=== PATIENT | female | born 1965 | race Caucasian/White ===

== ENCOUNTER 2017-12-13 08:11 | Day surgery (SDC) | payer OTHER, SELFPAY ==
--- NOTE | 2017-12-06 14:32 | EKG12_ITS ---
Test Reason : PRE OP Blood Pressure : / mmHG Vent. Rate : 078 BPM Atrial Rate : 078 BPM P-R Int : 140 ms QRS Dur : 092 ms QT Int : 376 ms P-R-T Axes : 073 080 050 degrees QTc Int : 428 ms Normal sinus rhythm Minimal voltage criteria for LVH, may be normal variant ST abnormality, possible digitalis effect Abnormal ECG Confirmed by DAVID JEFF, CHANDRAKANT ([id number]), market editor JESUS HUNTER ([id number]) on 12/07/2017 11:53:48 AM Referred By: TAYLOR Confirmed By:CHANDRAKANT HERNANDEZ MD
[2017-12-06 16:06] LABS: Hematocrit 39.8 % (37-47); Hemoglobin 13.6 g/dl (12.0-15.0); Mean Corp Hgb Conc 34.2 g/gl (32-36); Mean Corpuscular Hgb 30.3 pg (27.0-32.0); Mean Corpuscular Volume 88.6 fL (81-99); Platelet Count 259 K/mm3 (150-450); RBC Distribution Width CV 12.3 % (11.6-14.6); RBC Distribution Width SD 39.3 fl (35.1-43.9); Red Blood Count 4.49 M/mm3 (4.2-5.4); White Blood Count 6.4 K/mm3 (4.4-11.0)
[2017-12-06 16:08] LABS: Scan Indicated on CBC? Y/N NO
[2017-12-06 16:26] LABS: Anion Gap 7 (5-15); BUN 11 mg/dL (7-18); Calcium,Total 8.7 mg/dL (8.5-10.1); Chloride 103 mmol/L (98-107); Creatinine, Serum 0.79 mg/dL (0.55-1.02); EST Glomerular Filtration Rate 81 mL/min (>60); Est Glom Filt Rate - Afr Amer 98 mL/min (>60); Glucose 93 mg/dL (70-110); Potassium 3.2 mmol/L (3.5-5.1); Sodium Level 138 mmol/L (136-145)
[2017-12-13] VITALS (12 sets, daily range): BP systolic 130–160; BP diastolic 64–89; PULSE 70–96; RESP 14–18; TEMP 36.1–37.2; O2SAT 93–99; BMI 23.6
--- NOTE | 2017-12-13 05:22 | PCM.HPOB.BLA ---
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 Is patient in pain?: No Allergies amoxicillin [From Augmentin] Allergy (Mild, Verified 12/06/17 13:40) Diarrhea clavulanic acid [From Augmentin] Allergy (Mild, Verified 12/06/17 13:40) Diarrhea Medications megestrol 40 mg tablet 40 mg PO BID #60 tab 10/30/17 [Rx Confirmed 12/06/17] Hydrochlorothiazide [Hctz] 12.5 mg PO DAILY 12/06/17 [History Confirmed 12/06/17] Lorazepam [Ativan] 0.5 mg PO DAILY 12/06/17 [History Confirmed 12/06/17] Losartan Potassium 100 mg PO DAILY 12/06/17 [History Confirmed 12/06/17] Is last menstrual period known: Yes Last Menstral Period: 11/30/17 Post menopausal: No Patient : No : No PFSH Medical History Abnormal Pap smear of cervix (Acute) Anxiety (Acute) Hypertension (Chronic) Surgical History H/O knee surgery (Acute) gallbladder surgery (Acute) Family History Mother Cancer Brain Father Pulmonary fibrosis Multiple myeloma Cancer skin Sister Lupus Social History Smoking Status: Never smoker alcohol intake: never substance use type: does not use caffeine: Yes what type of physical activity do you participate in: walking frequency: 3-4 times per week seatbelt use: always additional social history: Allen Drummond Pregancy History 3 Elective abortions Hx Para 3 Spontaneous abortions Hx # Term Pregnancies Ectopic pregnancies Hx # Pregnancies Multiple births # of living children Past Pregnancies Del. Date Name GA/Weeks Outcome Route Bth Weight Gen Labor Lgth Anesthesia Del Locatn Provider FOB Unknown 1986 Andrew Unknown 1991 Andres Unknown 1998 Mari [facility] Preoperative exam for gynecologic surgery: Details: PRESTON BANGURA is a 52 year old who presents for abnormal uterine bleeding. she has bleeding most days of the month and then heavy at times like a regular period. she also has some pain with bleeding. pelvic us shows multiple fibroids including a submucosal fibroid. she denies any loss of urine. Female Reproductive History Last Menstral Period: 11/30/17 Cycle Length: 21-35 Questions: Metorrhagia: Yes, Sexually active: Yes, Dyspareunia: Yes, PCB: No ROS Const Constitutional: Reports system reviewed and no additional complaints, except as docu Cardio Card: Denies chest pain Resp Resp: Denies dyspnea or cough GI GI: Denies abdominal pain, nausea, vomiting or cramping : Denies urinary frequency, vaginal dryness, vaginal discharge, urinary urgency, urinary incontinence, vaginal odor, pelvic pain or nipple discharge Skin Skin/Breast: Denies breast lump, breast pain, breast skin changes, nipple discharge or change in hair Exam Const General: cooperative, healthy appearing, comfortable, no acute distress HENMT Head: normal to inspection, normocephalic Neck Neck: normal visual inspection, trachea midline Thyroid: thyroid normal Resp Effort & Inspection: normal respiratory effort GI Inspection: normal to inspection Palpation: soft, nontender Skin General: no rashes or lesions noted Assessment & Plan Problems 1. Preoperative exam for gynecologic surgery Z01.818 2. Intramural and submucous leiomyoma of uterus D25.1 3. Menorrhagia with irregular cycle N92.1 Plan .discussed ablation verus hysterectomy and due to the multiple fibroids and persistent bleeding recommend TVH possible bilateral salpingectomy. Discussed with the patient risks of surgery including risks of anesthesia, bleeding, infection, damage to surrounding structures such as bowel, bladder, or vasculature that could lead to additional surgery to repair. I discussed the risk of needing to convert to open abdominal procedure if unable to perform the procedure. Coding Level of Care Code No Charge Diagnoses Preoperative exam for gynecologic surgery Z01.818 Intramural and submucous leiomyoma of uterus D25.1 ??Uterine leiomyoma location: intramural and submucous Menorrhagia with irregular cycle N92.1 ??Menorrahagia type: with irregular cycle
[2017-12-13 09:09] LABS: Potassium 3.8 mmol/L (3.5-5.1)
[2017-12-13 09:45] LABS: Internal QC Validated? YES +Cl - CLEAR BKGD; Pregnancy, Urine Negative Negative
[2017-12-13] MEDS: Vasopressin 20 UNITS/ML Vial (09:58)
--- NOTE | 2017-12-13 10:15 | UT_PTH ---
PATIENT: PRESTON BANGURA LOC: [facility] [place] U#:[id number] AGE/SX: 52/F ROOM: RE12/13/[address]: Dr. Kay Barclay MD : [id number] BED: DIS: 12/14/2017 SPEC #: [id number] RECD: 12/13/17 11:36 STATUS: DEAN JULIAN #: [id number] MAL: 12/13/17 10:[address]: Kay Barclay DEPT: SURGICAL PATHOLOGY RECD BY: Mannie Pollock ENTERED: 12/13/17 13:24 SP TYPE: UTERUS OTHR DR: Dr. Octavio Rogers MD Tissues: Uterus, NOS Procedures: Surgery Specimen Level V HEADER OPERATION: Hysterectomy, vaginal, bilateral salpingectomy PRE-OP DIAGNOSIS: Intramural and submucous leiomyoma of uterus, menorrhagia TISSUE SUBMITTED: Uterus and bilateral fallopian tubes MICROSCOPIC DIAGNOSIS Uterus and bilateral fallopian tubes, vaginal hysterectomy and bilateral salpingectomy: Cervix ? chronic cystic cervicitis with tunnel cluster formations. Endometrium ? predominant weakly proliferative endometrium with focal changes consistent with exogenous hormone effect. Myometrium ? submucosal and intramural leiomyomas (largest measuring 2.5 cm in greatest dimension). - Focal adenomyosis. Bilateral fallopian tubes - no pathologic diagnosis. SJ:mehreen 12/14/17 MICROSCOPIC DESCRIPTION Slides are reviewed. GROSS DESCRIPTION Received in fixative is one container labeled with the patient's name and designated uterus and bilateral fallopian tubes. The specimen consists of a hysterectomy specimen consisting of uterus with cervix and detached bilateral fallopian tubes. The uterus with cervix weighs 161 gm and measures 10 x 6 x 5.5 cm. The serosal surface is zurita, glistening. The ectocervical mucosa is congested. The external os is circular in contour. The endocervical canal measures 3 cm in length and the endocervical mucosa is congested. No mass lesion is identified. Sections of cervix reveal a few cysts filled with mucoid material. The triangular endometrial cavity measures 4.5 cm in length and 2 cm in width. The endometrium is zurita, glistening without any mass lesion and measures 0.1 cm in thickness. Sections of uterine wall reveal multiple intramural and submucosal nodular masses. The largest mass measures 2.5 cm in greatest dimension. Sections of these masses reveal zurita whorled cut surfaces without areas of hemorrhage, necrosis or cystic degeneration. The uninvolved uterine wall measures up to 3 cm in thickness. The fallopian tubes are not identified as right or left. One of the fallopian tube measures 3.5 cm in length and 0.5 cm in diameter. The fimbrial end is identified. Sections reveal unremarkable cut surfaces. The second fallopian tube only consists of predominantly fimbrial end and measures 2 x 0.5 x 0.5 cm. Sections reveal unremarkable cut surfaces. The second fallopian tube is inked black. Cement Mason Helper sections are submitted in ten cassettes as follows: 1 - anterior cervix, 2 - posterior cervix, 3 & 4 - anterior uterine wall, 5 & 6 - posterior uterine wall, 7 ? largest nodular mass, 8 ? intermediate size nodular mass (submucosal in location), 9 ? additional sections for smaller and intermediate size nodular masses, 10 ? bilateral fallopian tubes. One fallopian tube is inked black. / DEMARCO:mehreen 12/13/17 TC:1 CPT: 40049
[2017-12-13] MEDS: Lactated Ringers 1,000 ML 125 ML IV ×2 (11:44→17:45)
[2017-12-13] MEDS: Ketorolac 30 MG/ML Syringe IV ×3 (11:45→23:29)
[2017-12-13] MEDS: Acetaminophen 500 MG Tablet 1000 MG PO ×2 (14:32→21:06)
[2017-12-13] MEDS: oxyCODONE 5 MG Tablet PO ×2 (17:42→21:56)
[2017-12-13] MEDS: Ondansetron 4 MG/2 ML Vial IV (19:12)
[2017-12-13] MEDS: 0.9% NaCl Peripheral Flush Adult/Peds IV (22:00)
--- NOTE | 2017-12-14 00:34 | OP.PCM_ITS ---
Problem List (1) Menorrhagia Status: Chronic Qualifiers: (2) Uterine fibroid Status: Chronic Qualifiers: Report of Operation Date of Procedure: 12/13/17 Pre-Operative Diagnosis: uterine fibroids abnormal uterine bleeding Post-Operative Diagnosis: same Surgery/Procedure Performed:: tvhbs Description of Surgical Findings:: uterine fibroids normal tubes and ovaries Type of Anesthesia:: General Specimen's removed: uterus tubes Estimated Blood Loss (mL): 100 Fluids Replaced: crystalloid Description of Procedure: Patient was taken to the operating room and was placed under general anesthesia was prepped and draped in normal sterile fashion in the dorsal lithotomy position. Preoperative antibiotics and SCDs and Arauz catheter was placed inside the bladder. Weighted speculum was placed in the vagina and the anterior and posterior lip of the cervix was grasped with 2 Jose clamps and circumferentially injected with dilute vasopressin. A circumferential incision was made with a scalpel and the posterior cul-de-sac was entered into sharply and a longneck speculum was placed. The anterior cul-de-sac was also dissected down and entered into sharply and the uterosacral ligaments were clamped cut and suture ligated bilaterally followed by the cardinal ligaments which were Clamped cut and suture ligated bilaterally with 0 Monocryl. The uterus serially descended and progressive bites were taken bilaterally up to the level of the utero-ovarian ligament bilaterally which was clamped transected and double ligated with 0 Monocryl suture and 0 Vicryl free tie. Bilateral fallopian tubes and ovaries were well visualized and noted be within normal limits and the bilateral fallopian tubes were transected across the base with a Radha clamp and removed and sutured with 0 Vicryl suture. Excellent hemostasis was noted. Posterior peritoneum was reapproximated with 2-0 Vicryl and a modified Blount stitch was placed through the posterior vaginal cuff and bilateral uterosacral ligaments across the posterior cul-de-sac skimming along to provide apical support to the vagina. The vagina was closed with figure-of- eight 0 Vicryl pop offs including the posterior and anterior peritoneum in the reapproximation. Excellent hemostasis was noted. All instruments removed from the vagina clear urine was noted at the end of the procedure and patient was awoken and taken recovery in stable condition. - Complications none - Admit VTE Documentation VTE Present on Admission: No VTE Mechan Device Prophylaxis: SCD's
[2017-12-14] MEDS: oxyCODONE 5 MG Tablet PO ×2 (01:57→10:26)
[2017-12-14 03:50] VITALS: BP 135/76; PULSE 96; RESP 18; TEMP 36.9; O2SAT 99
[2017-12-14] MEDS: 0.9% NaCl Peripheral Flush Adult/Peds IV (05:40)
[2017-12-14] MEDS: Acetaminophen 500 MG Tablet 1000 MG PO (05:40)
[2017-12-14] MEDS: Ketorolac 30 MG/ML Syringe IV (05:40)
[2017-12-14 06:33] LABS: Hematocrit 35.7 % (37-47); Hemoglobin 12.2 g/dl (12.0-15.0); Mean Corp Hgb Conc 34.2 g/gl (32-36); Mean Corpuscular Hgb 30.4 pg (27.0-32.0); Mean Platelet Vol. 9.6 fl (6.2-12.0); Platelet Count 244 K/mm3 (150-450); RBC Distribution Width CV 12.5 % (11.6-14.6); RBC Distribution Width SD 39.8 fl (35.1-43.9); Red Blood Count 4.01 M/mm3 (4.2-5.4); White Blood Count 9.2 K/mm3 (4.4-11.0)
[2017-12-14 06:38] LABS: Scan Indicated on CBC? Y/N NO
[2017-12-14 07:26] VITALS: O2SAT 96
--- NOTE | 2017-12-14 07:47 | PCM.PN.OB ---
Subjective: doing well pain fairly controlled ambulating tolerating po - Physical Exam General: Alert, Oriented x3 Vital Signs Temp Pulse Resp BP Pulse Ox 98.4 F 96 18 135/76 H 96 12/14/17 03:50 12/14/17 03:50 12/14/17 03:50 12/14/17 03:50 12/14/17 07:26 Oxygen Flow Rate 2 Oxygen Delivery Method Room Air Weight: 150 lb 9.211 oz Body Mass Index (BMI) 23.6 Intake and Output for Last 24 Hours 12/12/17 12/13/17 12/14/17 23:59 23:59 23:59 Intake Total 2321 / 2321 1608 / 1608 Output Total 200 / 200 1600 / 1600 Balance 2121 / 2121 Laboratory Tests Past 24 Hrs 12/13/17 12/13/17 12/14/17 08:54 09:10 06:10 WBC 9.2 RBC 4.01 L Hgb 12.2 Hct 35.7 L MCV 89.0 MCH 30.4 MCHC 34.2 RDW 12.5 RDW Differential 39.8 Plt Count 244 MPV 9.6 Potassium 3.8 Urine Test Negative Assessment/Plan s/p tvh routine care doing well dc home
--- NOTE | 2017-12-14 07:54 | PCM.DC.VHY ---
Allergies/Adverse Reactions: Allergies amoxicillin [From Augmentin] Allergy (Mild, Verified 12/06/17 13:40) Diarrhea clavulanic acid [From Augmentin] Allergy (Mild, Verified 12/06/17 13:40) Diarrhea Medications to take at Discharge Hydrochlorothiazide [Hctz] 12.5 mg PO DAILY 12/06/17 Lorazepam [Ativan] 0.5 mg PO DAILY 12/06/17 Losartan Potassium 100 mg PO DAILY 12/06/17 Potassium 99 mg PO DAILY 12/13/17 Naproxen [Naprosyn] 250 - 500 mg PO Q8H PRN PRN #30 tab 12/14/17 Oxycodone HCl/Acetaminophen [Percocet 5-325] 2 tablet PO Q4H PRN PRN 7 Days #28 tablet 12/14/17 The following prescriptions were given: Oxycodone HCl/Acetaminophen [Percocet 5-325] 2 tablet PO Q4H PRN PRN 7 Days #28 tablet PRN Reason: Moderate-Severe pain Naproxen [Naprosyn] 250 - 500 mg PO Q8H PRN PRN #30 tab PRN Reason: MILD PAIN Primary Care Physician: Troy Rogers MD [Primary Care Provider] - Please Follow Up With: Kay Barclay MD - [phone]
[2017-12-14 07:55] VITALS: BP 124/77; PULSE 81; RESP 16; TEMP 36.8; O2SAT 99
[2017-12-14] MEDS: LORazepam 0.5 MG Tablet PO (10:26)
[2017-12-14 11:13] VITALS: BP 127/79; PULSE 83; RESP 16; TEMP 36.8; O2SAT 99
== END 2017-12-14 07:55 | disposition home or self-care (01) ==
LOC: SDC 08:12 → AC 08:15 → MS3 11:19
PROVIDERS: Anesthesiology; Family Provider Family Medicine; PCP Family Medicine; Visit Provider Obstetrics & Gynecology
PROC: (CPT 58260; principal; 2017-12-13 09:55)
DX: D25.0 Submucous leiomyoma of uterus (principal); D25.1 Intramural leiomyoma of uterus; N92.1 Excessive and frequent menstruation with irregular cycle; N72 Inflammatory disease of cervix uteri; N85.8 Other specified noninflammatory disorders of uterus; N80.0 Endometriosis of uterus; I10 Essential (primary) hypertension; F41.9 Anxiety disorder, unspecified; Z79.899 Other long term (current) drug therapy
CPT/HCPCS: 00944; 58262; 36415; 80048; 81025; 84132; 85027; 86850; 86900; 88307; J7120; A4216; J2405

== ENCOUNTER → 2017-12-20 09:49 | Outpatient (CLI) | payer OTHER, SELFPAY ==
[2017-12-13 12:42] VITALS: BMI 23.6
[2017-12-14 11:13] VITALS: BP 127/79
--- NOTE | 2017-12-20 09:54 | ECHOD_ITS ---
Reason For Study: Syncope Procedure This was a 2D Doppler, Color Flow transthoracic echocardiogram. Exam performed in department. Left Ventricle Mild concentric left ventricular hypertrophy. The estimated ejection fraction is 65 %. Stage 1 diastolic dysfunction. No regional wall motion abnormalities noted. Right Ventricle Normal size and thickness. Normal systolic function. Atria Normal left atrium. Normal right atrium. Normal atrial septum. Mitral Valve The mitral valve is structurally normal. No prolapse or stenosis seen. Tricuspid Valve Normal tricuspid valve. Unable to estimate RV systolic pressure/pulmonary artery pressure due to technically difficult study. Aortic Valve Normal aortic valve. Trisinus/trileaflet aortic valve. Pulmonic Valve Normal pulmonic valve. Great Vessels Normal aortic root. Normal arch. Normal inferior vena cava. Inferior vena cava collapse with sniff. Pericardium/Pleural No pericardial effusion. MMode/2D Measurements & Calculations LVIDd: 3.8 cm IVSd: 1.4 cm Ao root diam: 2.5 cm LVIDs: 3.2 cm LVPWd: 1.3 cm LA dimension: 2.6 cm RVDd: 2.4 cm FS: 16.6 % LAV(MOD-bp): 25.5 ml LA A4 area: 9.3 cm2 RA A4 area: 8.7 cm2 LAV(MOD-bp) Indexed: 14.2 ml/m2 LAV(MOD-sp2): 28.4 ml LAV(MOD-sp4): 18.4 ml Doppler Measurements & Calculations MV E max naif: 49.1 cm/sec Lat Peak E' Naif: 5.9 cm/sec Med Peak E' Naif: 5.4 cm/sec MV A max naif: 72.5 cm/sec E/E' lat: 8.4 E/E' med: 9.2 MV E/A: 0.68 Ao V2 max: 110.5 cm/sec LV V1 max: 83.4 cm/sec PA V2 max: 74.0 cm/sec Ao max P.9 mmHg LV V1 max P.8 mmHg Interpretation Summary Mild concentric left ventricular hypertrophy. The estimated ejection fraction is 65 %. Stage 1 diastolic dysfunction. Unable to estimate RV systolic pressure/pulmonary artery pressure due to technically difficult study. There is no comparison study available. Ordering Physician: Pascual Smith Referring Physician: DOCTOR, OUT OF TOWN Performed By: Andree Lucio RDCS
== END ==
PROVIDERS: Family Provider Family Medicine; PCP Family Medicine
DX: R55 Syncope and collapse (principal)
CPT/HCPCS: 93225; 93226; 93306

== ENCOUNTER → 2017-12-28 17:17 | Outpatient (CLI) | payer OTHER, SELFPAY | PROVIDERS: Family Provider Family Medicine; Visit Provider Obstetrics & Gynecology | DX: R30.0 Dysuria (principal) | CPT/HCPCS: 87077; 87086; 87088; 87186 ==

== ENCOUNTER → 2018-02-04 12:26 | Outpatient (CLI) | payer OTHER, SELFPAY ==
[2018-01-25 12:22] LABS: BUN 11 mg/dL (7-18); Creatinine, Serum 0.84 mg/dL (0.55-1.02); EST Glomerular Filtration Rate 76 mL/min (>60); Est Glom Filt Rate - Afr Amer 91 mL/min (>60)
--- NOTE | 2018-02-04 12:42 | MRI_ITS ---
STUDY: MRI BRAIN WITH AND WITHOUT CONTRAST REASON FOR EXAM: Female, 52 years old. Fainting TECHNIQUE: Standardized multiplanar fat and water weighted pulse sequences were obtained. 7 ml of Gadavist contrast material was administered intravenously for the contrast portion of the examination. COMPARISON: October 30, 2017 FINDINGS: Normal size of the ventricles and extra-axial spaces for the patient's age. Periventricular white matter hyperintensity is seen most pronounced in the parieto-occipital regions with involvement of the corpus callosum. No mass effect or restricted diffusion.. Normal bilateral basal ganglia. Normal thalami. There is no extra-axial fluid accumulation. Normal flow voids within the major intracranial circulation suggesting patency by spin echo criteria. Normal venous enhancement. There is no enhancing intra-axial or extra-axial abnormality. Normal sella turcica, pituitary gland, infundibular stalk, optic chiasm and hypothalamus. Normal tectal plate and pineal gland. Normal midbrain, yoko and medulla. Normal cerebellum. Normal basal cisterns. Normal bilateral temporal bones. Normal bilateral internal auditory canals. Increased signal intensity in the right mastoid air cells which may be consistent with inflammatory disease No demonstrated orbital abnormality, within the constraints of a routine brain study. Minor mucosal thickening of the ethmoid air cells. Normal calvarium and skull base. Normal visualized soft tissue structures. Normal visualized upper cervical spine. Findings are unchanged when compared with prior study MRI/Brain W/WO Contrast IMPRESSION: Findings which may be consistent with PRES in patient of this age although multiple sclerosis may have similar appearance. Clinical correlation recommended Electronically Signed: Timi Alexander MD at 22:06 EDT , Service support ,
== END ==
PROVIDERS: Psychiatry & Neurology Neurology; Family Provider Family Medicine; PCP Family Medicine
DX: R93.0 Abnormal findings on diagnostic imaging of skull and head, not elsewhere classified (principal); R55 Syncope and collapse; R94.01 Abnormal electroencephalogram [EEG]; I10 Essential (primary) hypertension
CPT/HCPCS: 36415; 70553; 82565; 84520; A9585

== ENCOUNTER → 2018-03-12 18:06 | Outpatient (CLI) | payer OTHER, SELFPAY | PROVIDERS: Visit Provider Nurse Practitioner Women's Health | DX: N94.9 Unspecified condition associated with female genital organs and menstrual cycle (principal) | CPT/HCPCS: 87070; 87077; 87186; 87205 ==

== ENCOUNTER → 2018-10-07 09:14 | Outpatient (CLI) | payer OTHER, SELFPAY ==
[2018-09-26 17:13] VITALS: BMI 23.6
--- NOTE | 2018-10-10 14:20 | EEG ---
- Electroencephalogram Service 10/07/18 This is a 18 channel electroencephalogram performed utilizing the International 10-20 electrode placement protocol as well as hyperventilation, photic stimulation and EKG reference leads on this 53-year-old female with a history of seizures. Activity is 10 Hz symmetrically in the posterior leads which attenuates with eye opening. Hyper ventilation is performed for 3 minutes with good effort with no lateralizing or epileptiform changes. Photic stimulation generates a normal symmetric driving response in the posterior leads and EKG is normal sinus rhythm throughout the recording. The patient remained awake throughout the recording without lateralizing or epileptiform changes. Impression: Normal awake electroencephalogram
== END ==
PROVIDERS: Family Provider Family Medicine; PCP Family Medicine; Referring Provider Psychiatry & Neurology Neurology; Visit Provider Psychiatry & Neurology Neurology
DX: R56.9 Unspecified convulsions (principal)

== ENCOUNTER → 2018-12-11 17:48 | Outpatient (CLI) | payer OTHER, SELFPAY ==
[2018-09-26 17:13] VITALS: BMI 23.6
--- NOTE | 2018-12-11 18:03 | MRI_ITS ---
STUDY: MRI BRAIN WITHOUT CONTRAST REASON FOR EXAM: Female, 53 years old. Seizure, history of prior abnormal MRI TECHNIQUE: Standardized multiplanar fat and water weighted pulse sequences were obtained. COMPARISON: February 04, 2018 FINDINGS: Normal size of the ventricles and extra-axial spaces for the patient's age. Periventricular white matter disease most pronounced the parieto-occipital regions with involvement of the corpus callosum and focal lesions within the frontal parietal regions bilaterally. No mass or restricted diffusion.. Normal bilateral basal ganglia. Normal thalami. There is no extra-axial fluid accumulation. Normal flow voids within the major intracranial circulation suggesting patency by spin echo criteria. Normal sella turcica, pituitary gland, infundibular stalk, optic chiasm and hypothalamus. Normal tectal plate and pineal gland. Normal midbrain, yoko and medulla. Normal cerebellum. Normal basal cisterns. Normal bilateral temporal bones. Normal bilateral internal auditory canals. Increased signal within the right mastoid air cells which may be due to inflammatory changes No demonstrated orbital abnormality, within the constraints of a routine brain study. Minor mucosal thickening in the right ethmoid air cells.. Normal calvarium and skull base. Normal visualized soft tissue structures. Normal visualized upper cervical spine. Findings are stable since previous study MRI/Brain without Contrast IMPRESSION: Stable appearance to periventricular white matter disease likely chronic ischemic changes due to small vessel disease. No evidence for acute infarct . Electronically Signed: Timi Alexander MD at 21:17 EST , Service support ,
== END ==
PROVIDERS: Family Provider Family Medicine; PCP Family Medicine; Referring Provider Psychiatry & Neurology Neurology; Visit Provider Psychiatry & Neurology Neurology
DX: R56.9 Unspecified convulsions (principal)
CPT/HCPCS: 70551

== ENCOUNTER → 2018-12-25 07:15 | Outpatient (CLI) | payer OTHER, SELFPAY ==
[2018-09-26 17:13] VITALS: BMI 23.6
--- NOTE | 2018-12-25 07:19 | BI_ITS ---
MAMMOGRAPHY - BILATERAL SCREENING REASON FOR EXAM: Female, 53 years old. Routine annual screening examination. PERTINENT HISTORY: Non-contributory. TECHNIQUE: Digital bilateral breast karen (3D mammographic acquisition) in the CC and MLO projections. 2-D mediolateral oblique (MLO) and craniocaudad (CC) views of both breasts were obtained. CAD: Full Field Digital Mammography with Computer Added Detection was performed. COMPARISON: Comparison is made with prior study dated October 22, 2017. FINDINGS: Breast Composition: There are scattered areas of fibroglandular density. There are no dominant masses or suspicious calcifications. No other significant abnormalities are identified. There has been no significant change since the prior study. BI/SCREENING MAMM (CAD), BILAT IMPRESSION: Stable bilateral screening mammogram. Yearly follow-up mammogram recommended. (A) ASSESSMENT CATEGORY: BIRADS Category 1: Negative. A letter regarding these results will be sent to the patient by the facility within 30 days. Approximately 10% of breast cancers are not detected by mammography. A normal mammogram should not delay biopsy of a clinically suspicious abnormality. [id number] Electronically Signed: Keaton Wagner MD at 9:43 EST , Service support ,
== END ==
PROVIDERS: Family Provider Family Medicine; PCP Family Medicine; Referring Provider Family Medicine; Visit Provider Family Medicine
DX: Z12.31 Encounter for screening mammogram for malignant neoplasm of breast (principal)
CPT/HCPCS: 77063; 77067

== ENCOUNTER 2019-02-21 17:50 | Emergency (ER) | payer OTHER, SELFPAY ==
[2018-09-26 17:13] VITALS: BMI 23.6
[2019-02-21 17:51] VITALS: BP 163/91; PULSE 91; RESP 16; TEMP 36.7; O2SAT 98; BMI 23.8
[2019-02-21] MEDS: Lidocaine/Epi/Tetracaine 50 ML 1 APPLIC TOPICAL (18:34)
--- NOTE | 2019-02-21 19:42 | ED.VISSUMM ---
- ER Visit Summary Date of Service: 02/21/19 Chief Complaint: Laceration History of Present Illness: The patient is a 53 F presenting with right hand laceration. This occurred just prior to arrival. She cut her right index finger on the sharp edge of a can. She is left-handed. Her tetanus is up-to-date. Physical Examination: Vitals are stable. Patient is afebrile. Alert no acute distress. HEENT exam is unremarkable. Neck is supple. Lungs are clear and equal bilaterally. Heart is regular rate and rhythm. Extremities 2 cm proximal palmar right index finger laceration. Normal cap refill. Tendon function is intact. Skin is warm and dry. No focal neurologic deficit. Remainder of exam is unremarkable. Emergency Department Course and Treatment: LET was applied. Irrigated with saline. Anesthetized with lidocaine. 5, 5-0 simple sutures were placed. Patient tolerated well. Advised wound care instructions. Advised follow-up with primary care physician. Disposition: Discharge home Impression: Right index finger laceration, laceration repair This note was generated with [employer] dictation software. It may contain incorrect words, spelling, and punctuation that were not noted in review of the chart prior to signing ED Disposition - Plan for ED Patient: Instructions: ED Laceration Hand Referrals: Troy Rogers MD [Primary Care Provider] -
[2019-02-21 19:58] VITALS: BP 156/94; PULSE 85; RESP 17; TEMP -7.2; TEMP 19; O2SAT 99
== END 2019-02-21 20:01 | disposition home or self-care (01) ==
PROVIDERS: Emergency Provider Emergency Medicine; Family Provider Family Medicine; PCP Family Medicine
DX: S61.210A Laceration without foreign body of right index finger without damage to nail, initial encounter (principal); W26.8XXA Contact with other sharp object(s), not elsewhere classified, initial encounter; Y93.9 Activity, unspecified; Y92.9 Unspecified place or not applicable
CPT/HCPCS: 12001; 99285

== ENCOUNTER → 2019-09-09 08:34 | Outpatient (CLI) | payer OTHER, SELFPAY ==
[2019-09-09 09:25] LABS: Estradiol 100.1 pg/mL; Follicle Stimulating Hormone 39.2 mIU/mL; Luteinizing Hormone 42.7 mIU/mL
[2019-09-09 09:28] LABS: Progesterone Level 0.13 ng/mL (See Comment)
[2019-09-09 14:03] LABS: Free T3 2.6 pg/mL (2.18-3.98); T4 Free Direct 1.03 ng/dL (0.76-1.46); Thyroid Stim Hormone (TSH) 2.35 uIU/mL (0.358-3.74)
[2019-09-10 19:29] LABS: DHEA Sulfate 175.9 ug/dL (29.4-220.5)
== END ==
LOC: LAB 09-08 09:22 → LAB.FUTURE 08:35 → LAB 09-10 07:07
PROVIDERS: Family Provider Family Medicine; PCP Family Medicine; Referring Provider Specialist; Visit Provider Specialist
DX: N95.1 Menopausal and female climacteric states (principal); E03.8 Other specified hypothyroidism; R53.81 Other malaise
CPT/HCPCS: 36415; 82627; 82670; 83001; 83002; 84144; 84403; 84439; 84443; 84481; 82626

== ENCOUNTER → 2019-11-01 10:54 | Outpatient (CLI) | payer OTHER, SELFPAY ==
[2019-11-03 09:33] LABS: Vitamin D,25 Hydroxy 32.4 ng/mL (29.95-100.01)
== END ==
PROVIDERS: Family Provider Family Medicine; PCP Family Medicine; Referring Provider Specialist; Visit Provider Specialist
DX: E55.9 Vitamin D deficiency, unspecified (principal)
CPT/HCPCS: 36415; 82306

== ENCOUNTER → 2020-04-08 08:49 | Outpatient (CLI) | payer OTHER, SELFPAY ==
[2020-04-08 10:19] LABS: Progesterone Level 14.56 ng/mL (See Comment)
[2020-04-08 10:26] LABS: Estradiol 19.4 pg/mL; Free T3 2.8 pg/mL (2.18-3.98)
== END ==
PROVIDERS: PCP Family Medicine; Referring Provider Specialist; Visit Provider Specialist
DX: E03.9 Hypothyroidism, unspecified (principal); N95.1 Menopausal and female climacteric states
CPT/HCPCS: 36415; 82670; 84144; 84403; 84481

== ENCOUNTER → 2020-04-15 10:08 | Outpatient (CLI) | payer OTHER, SELFPAY ==
[2020-04-15 12:31] LABS: Absolute Lymphocyte Count 1.75 X10^3/uL (0.83-4.51); Absolute Neutrophil Count 2.9 X10^3/uL (2.0-7.7); Basophil# 0.02 X10^3/uL; Basophil% 0.4 % (0-1); Eosinophil# 0.08 X10^3/uL; Eosinophils% 1.5 % (0-5); Hematocrit 42.7 % (37-47); Hemoglobin 14.2 g/dL (12.0-15.0); Lymphocyte # 1.75 X10^3/ul (4.0); Lymphocyte % 33.6 % (19-41); Mean Corp Hgb Conc 33.3 g/dL (32-36); Mean Corpuscular Hgb 30.6 pg (27.0-32.0); Mean Platelet Vol. 10.1 fl (6.2-12.0); Monocyte# 0.41 X10^3/uL; Monocyte% 7.9 % (0-10); NRBC Flagged by Analyzer 0 % (0-5); Neutrophil # 2.93 X10^3/uL (2.7-7.7); Neutrophil % 56.2 % (47-70); Platelet Count 234 K/mm3 (150-450); RBC Distribution Width CV 12.5 % (11.6-14.6); RBC Distribution Width SD 41.3 fl (35.1-43.9); Red Blood Count 4.64 M/mm3 (4.2-5.4); White Blood Count 5.2 K/mm3 (4.4-11.0)
[2020-04-15 12:44] LABS: Erythrocyte Sedimentation Rate 9 mm/hr (0-30)
[2020-04-15 13:02] LABS: Vitamin D,25 Hydroxy 37.4 ng/mL
[2020-04-15 13:10] LABS: ALB/GLOB Ratio 0.9 RATIO (0.9-2.4); AST(SGOT) 16 U/L (15-37); Alanine Aminotransfer ALT/SGPT 25 U/L (13-56); Albumin, Serum 3.6 g/dL (3.2-5.0); Alkaline Phosphatase 66 U/L (45-117); Anion Gap 4 (5-15); BUN 10 mg/dL (7-18); BUN/Creat Ratio 10.4 RATIO (10-20); CRP < 2.90 mg/L (0.0-3.0); Calcium,Total 9.1 mg/dL (8.5-10.1); Chloride 103 mmol/L (98-107); Creatinine, Serum 0.96 mg/dL (0.55-1.02); EST Glomerular Filtration Rate 64 mL/min (>60); Est Glom Filt Rate - Afr Amer 77 mL/min (>60); Globulin 3.8 g/dL (2.2-4.2); Glucose 84 mg/dL (74-106); Potassium 3.8 mmol/L (3.5-5.1); Protein, Total 7.4 g/dL (6.4-8.2); Rheumatoid Factor < 10.0 IU/mL (<15); Sodium Level 138 mmol/L (136-145)
[2020-04-17 15:52] LABS: ANTINUCLEAR ANTIBODIES DIRECT Positive (Negative)
[2020-04-28 05:11] LABS: HLA B27 Negative (.)
== END ==
PROVIDERS: PCP Family Medicine; Visit Provider Family Medicine
DX: M25.50 Pain in unspecified joint (principal)
CPT/HCPCS: 36415; 80053; 81291; 81374; 82306; 85025; 85652; 86038; 86140; 86225; 86235; 86431

== ENCOUNTER → 2020-06-18 10:32 | Outpatient (CLI) | payer OTHER, SELFPAY ==
[2020-06-18 13:06] LABS: Estradiol 32.9 pg/mL
[2020-06-18 13:11] LABS: Progesterone Level 18.35 ng/mL (See Comment)
== END ==
PROVIDERS: PCP Family Medicine; Referring Provider Specialist; Visit Provider Specialist
DX: N95.1 Menopausal and female climacteric states (principal); E03.9 Hypothyroidism, unspecified
CPT/HCPCS: 36415; 82670; 84144; 84403; 84481

== ENCOUNTER → 2020-09-23 12:50 | Outpatient (CLI) | payer OTHER, SELFPAY ==
[2020-09-23 16:00] LABS: Progesterone Level 9.46 ng/mL (See Comment)
[2020-09-23 18:24] LABS: Estradiol 12.7 pg/mL; Free T3 2.4 pg/mL (2.18-3.98)
== END ==
PROVIDERS: PCP Family Medicine; Referring Provider Specialist; Visit Provider Specialist
DX: E03.9 Hypothyroidism, unspecified (principal); E27.9 Disorder of adrenal gland, unspecified; N95.1 Menopausal and female climacteric states
CPT/HCPCS: 36415; 82627; 82670; 84144; 84403; 84481; 82626

== ENCOUNTER → 2020-12-06 12:21 | Outpatient (CLI) | payer OTHER, SELFPAY | PROVIDERS: PCP Family Medicine | DX: Z20.822 Contact with and (suspected) exposure to COVID-19 (principal) | CPT/HCPCS: 87635; U0003 ==

== ENCOUNTER → 2020-12-24 13:14 | Outpatient (CLI) | payer OTHER, SELFPAY ==
[2020-12-24 15:41] LABS: Progesterone Level 7.64 ng/mL (See Comment)
[2020-12-24 17:21] LABS: Anion Gap 4 (5-15); BUN 12 mg/dL (7-18); BUN/Creat Ratio 12.7 RATIO (10-20); Calcium,Total 8.7 mg/dL (8.5-10.1); Chloride 102 mmol/L (98-107); Cholesterol 118 mg/dL (200); Creatinine, Serum 0.95 mg/dL (0.55-1.02); EST Glomerular Filtration Rate 65 mL/min (>60); Est Glom Filt Rate - Afr Amer 78 mL/min (>60); Estradiol 15.1 pg/mL; Glucose 87 mg/dL (74-106); High Density Lipoprotein 47 mg/dL; Potassium 3.7 mmol/L (3.5-5.1); Sodium Level 138 mmol/L (136-145); Triglycerides 98 mg/dL; Very Low Density Lipoprotein 20 mg/dL (5-40)
== END ==
PROVIDERS: PCP Family Medicine; Referring Provider Family Medicine; Visit Provider Family Medicine
DX: E03.8 Other specified hypothyroidism (principal); N95.1 Menopausal and female climacteric states; I10 Essential (primary) hypertension
CPT/HCPCS: 36415; 80048; 80061; 82670; 84144; 84403; 84481

== ENCOUNTER → 2021-03-23 13:43 | Outpatient (CLI) | payer OTHER, SELFPAY ==
[2021-03-23 15:41] LABS: Progesterone Level 8.36 ng/mL (See Comment)
[2021-03-23 15:49] LABS: Estradiol 26.9 pg/mL; Free T3 4.8 pg/mL (2.18-3.98)
== END ==
PROVIDERS: PCP Family Medicine; Referring Provider Specialist; Visit Provider Specialist
DX: N95.1 Menopausal and female climacteric states (principal); E03.9 Hypothyroidism, unspecified
CPT/HCPCS: 36415; 82670; 84144; 84403; 84481

== ENCOUNTER → 2021-04-21 13:45 | Outpatient (CLI) | payer OTHER, SELFPAY ==
--- NOTE | 2021-04-21 13:48 | BI_ITS ---
MAMMOGRAPHY - BILATERAL SCREENING REASON FOR EXAM: Female, 55 years old. Routine annual screening examination. PERTINENT HISTORY: Non-contributory. TECHNIQUE: Digital bilateral breast karen (3D mammographic acquisition) in the CC and MLO projections. 2-D mediolateral oblique (MLO) and craniocaudad (CC) views of both breasts were obtained. CAD: Full Field Digital Mammography with Computer Added Detection was performed. COMPARISON: Comparison is made with prior study dated 12/25/2018 and 10/22/2017. FINDINGS: Breast Composition: There are scattered areas of fibroglandular density. There are no dominant masses or suspicious calcifications. Benign appearing left axillary nodes. No other significant abnormalities are identified. There has been no significant change since the prior study. BI/SCREENING MAMM (CAD), BILAT IMPRESSION: Stable bilateral screening mammogram. Yearly follow-up mammogram recommended. (A) ASSESSMENT CATEGORY: BIRADS Category 2: Benign. A letter regarding these results will be sent to the patient by the facility within 30 days. Approximately 10% of breast cancers are not detected by mammography. A normal mammogram should not delay biopsy of a clinically suspicious abnormality. [id number] Electronically Signed: Keaton Wagner MD at 14:57 EDT , Service support ,
== END ==
PROVIDERS: PCP Family Medicine; Referring Provider Family Medicine; Visit Provider Family Medicine
DX: Z12.31 Encounter for screening mammogram for malignant neoplasm of breast (principal)
CPT/HCPCS: 77067

== ENCOUNTER → 2021-06-22 13:53 | Outpatient (CLI) | payer OTHER, SELFPAY ==
[2021-06-22 15:43] LABS: Progesterone Level 9.24 ng/mL (See Comment)
[2021-06-22 19:38] LABS: Estradiol 47.7 pg/mL; Free T3 2.1 pg/mL (2.18-3.98); T4 Free Direct 0.84 ng/dL (0.76-1.46)
== END ==
PROVIDERS: PCP Family Medicine; Visit Provider Specialist
DX: E03.8 Other specified hypothyroidism (principal); N95.1 Menopausal and female climacteric states
CPT/HCPCS: 36415; 82670; 84144; 84403; 84439; 84443; 84481

== ENCOUNTER → 2021-07-05 13:59 | Outpatient (CLI) | payer OTHER, SELFPAY ==
[2021-07-09 03:07] LABS: Beef <0.10 kU/L (Class 0); Corn <0.10 kU/L (Class 0); Egg, Whole <0.10 kU/L (Class 0); Milk (Cow) <0.10 kU/L (Class 0); Peanut <0.10 kU/L (Class 0); Pork <0.10 kU/L (Class 0); Soybean <0.10 kU/L (Class 0); Wheat <0.10 kU/L (Class 0)
[2021-07-09 10:22] LABS: Chocolate <0.10 kU/L (Class 0)
== END ==
PROVIDERS: PCP Family Medicine; Referring Provider Family Medicine; Visit Provider Family Medicine
DX: Z91.018 Allergy to other foods (principal)
CPT/HCPCS: 36415; 86003; 86005

== ENCOUNTER → 2021-09-23 11:46 | Outpatient (CLI) | payer OTHER, SELFPAY ==
[2021-09-23 15:22] LABS: Progesterone Level 7.39 ng/mL (See Comment)
[2021-09-23 15:23] LABS: Estradiol 118.7 pg/mL; Free T3 2.1 pg/mL (2.18-3.98); Thyroid Stim Hormone (TSH) 0.88 uIU/mL (0.358-3.74)
== END ==
PROVIDERS: PCP Family Medicine
DX: E03.8 Other specified hypothyroidism (principal); N95.1 Menopausal and female climacteric states; R53.81 Other malaise
CPT/HCPCS: 36415; 82627; 82670; 84144; 84403; 84443; 84481; 82626

== ENCOUNTER → 2021-10-11 08:07 | Outpatient (CLI) | payer OTHER, SELFPAY ==
[2021-10-11 09:51] LABS: Absolute Lymphocyte Count 1.53 X10^3/uL (0.83-4.51); Absolute Neutrophil Count 3.8 X10^3/uL (2.0-7.7); Basophil# 0.02 X10^3/uL; Basophil% 0.3 % (0-1); Eosinophils% 1.7 % (0-5); Hematocrit 43.9 % (37-47); Hemoglobin 14.3 g/dL (12.0-15.0); Lymphocyte # 1.53 X10^3/ul (0.83-4.51); Mean Corp Hgb Conc 32.6 g/dL (32-36); Mean Corpuscular Hgb 29.5 pg (27.0-32.0); Mean Corpuscular Volume 90.7 fL (81-99); Mean Platelet Vol. 9.9 fl (6.2-12.0); Monocyte# 0.46 X10^3/uL; Monocyte% 7.8 % (0-10); NRBC Flagged by Analyzer 0 % (0-5); Neutrophil # 3.75 X10^3/uL (2.7-7.7); Neutrophil % 63.7 % (47-70); Platelet Count 264 K/mm3 (150-450); RBC Distribution Width CV 12.8 % (11.6-14.6); RBC Distribution Width SD 42.1 fl (35.1-43.9); Red Blood Count 4.84 M/mm3 (4.2-5.4); White Blood Count 5.9 K/mm3 (4.4-11.0)
[2021-10-11 10:09] LABS: ALB/GLOB Ratio 0.9 RATIO (0.9-2.4); AST(SGOT) 15 U/L (15-37); Alanine Aminotransfer ALT/SGPT 27 U/L (13-56); Albumin, Serum 3.3 g/dL (3.2-5.0); Alkaline Phosphatase 66 U/L (45-117); Anion Gap 6 (5-15); BUN 12 mg/dL (7-18); BUN/Creat Ratio 12.9 RATIO (10-20); Calcium,Total 8.7 mg/dL (8.5-10.1); Chloride 104 mmol/L (98-107); Creatinine, Serum 0.93 mg/dL (0.55-1.02); EST Glomerular Filtration Rate 66 mL/min (>60); Est Glom Filt Rate - Afr Amer 80 mL/min (>60); Globulin 3.7 g/dL (2.2-4.2); Glucose 99 mg/dL (74-106); Potassium 3.7 mmol/L (3.5-5.1); Sodium Level 137 mmol/L (136-145)
== END ==
PROVIDERS: PCP Family Medicine; Referring Provider Family Medicine; Visit Provider Registered Nurse
DX: K62.5 Hemorrhage of anus and rectum (principal)
CPT/HCPCS: 36415; 80053; 85025

== ENCOUNTER → 2021-11-03 10:22 | Outpatient (CLI) | payer OTHER, SELFPAY ==
[2021-11-03 12:43] LABS: Free T3 2.7 pg/mL (2.18-3.98); T4 Free Direct 0.95 ng/dL (0.76-1.46); Thyroid Stim Hormone (TSH) 0.64 uIU/mL (0.358-3.74)
== END ==
PROVIDERS: PCP Family Medicine
DX: E02 Subclinical iodine-deficiency hypothyroidism (principal)
CPT/HCPCS: 36415; 84439; 84443; 84481